=== PATIENT | female | born 1965 | race Caucasian/White ===

== ENCOUNTER → 2017-02-14 | Outpatient (CLI) | payer OTHER ==
[2014-05-02 09:15] VITALS: BP 126/59
--- NOTE | 2017-02-15 11:24 | MRI ---
MRI Lumbar spine without contrast Indication: Back pain Technique: Multisequence, multiplanar MR images of the lumbar spine were obtained without IV contrast . 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 Marrow signal is otherwis e normal. No acute fracture, malalignment or suspicious osseous lesion is identified. The conus termi nates normally at L1-L2. The cauda equina is unremarkable. The visualized paraspinal soft tissues dem onstrates no gross unexpected findings. T12-L1, L1-L2, L2-L3: Unremarkable L3-L4: There is a broad-based disc bulge, lateralized towards the left and bilateral facet arthropath y, resulting in mild left lateral recess and mild left foraminal narrowing, unchanged when compared t o the prior exam. There is no significant canal or right foraminal stenosis. L4-L5: Mild facet arthropathy. Otherwise, unremarkable. L5-S1: There is a moderate broad-based disc bulge and advanced hypertrophic facet arthropathy and lig amentum thickening, greater on the right. Findings collectively result in severe right lateral recess and foraminal stenosis. There is also moderate canal stenosis, increased compared to prior exam. The left neural foramen is patent. Impression: Multilevel degenerative changes, most significant at L5-S1, as detailed above. Reported By:
== END | disposition home or self-care (01) | DRG 552 ==
LOC: RAD 14:44
PROVIDERS: ATTEND Internal Medicine
DX: M51.16 Intervertebral disc disorders with radiculopathy, lumbar region (principal); M51.37 Other intervertebral disc degeneration, lumbosacral region
CPT/HCPCS: 72148